=== PATIENT | male | born 1940 | race Caucasian/White ===

== ENCOUNTER 2021-01-09 20:09 | Inpatient (IN) ==
[2021-01-09] MEDS ORDERED: MORPHINE 4 MG/1 ML VIAL IV STA (20:52)
[2021-01-09 21:44] LABS: Basophils # 0.1 10*3/uL (0.0-0.2); Basophils % 0.3 % (0.0-0.8); Eosinophils % 0.2 % (0.00-10.9); Hematocrit 39.9 VOL% (42.0-52.0); Hemoglobin 12.5 GM/DL (14.0-18.0); Immature Granulocytes % 3.3 %; Immature Granulocytes Absolute 0.74 #; Lymphocytes # 1.1 10*3/uL (1.4-4.0); Lymphocytes % 4.8 % (21.2-54.2); Mean Corpuscular HGB Conc 31.3 GM/DL (32-36); Mean Platelet Volume 10.4 FL (9.6-12.0); Monocytes % 7.6 % (1.7-12.7); Neutrophils % 83.8 % (38.7-73.9); Platelet Count 147 T/CUMM (130-400); Red Blood Count 4.29 MC/CUMM (3.8-5.5); Red Cell Distribution Width 15.5 % (9.3-17.3); White Blood Count 22.4 T/CUMM (4-12)
[2021-01-09 21:59] LABS: Albumin 2.5 G/DL (3.4-5.0); Bilirubin,Total 0.6 MG/DL (0.2-1.0); Calcium 8.4 MG/DL (8.5-10.1); Osmolality,Calculated 296.7 MOS/KG (273-304); Potassium 4.8 MMOL/L (3.5-5.1); Total Protein 6.6 G/DL (6.4-8.2)
[2021-01-09 22:03] LABS: INR 1.3; PT Patient Result 13.6 SECS (9.8-11.9); Partial Thromboplastin Time 29.3 SECS (23.9-33.8)
[2021-01-09] MEDS ORDERED: cefTRIAXone 1,000 MG in SODIUM CHLORIDE 0.9% 100 ML IV STA (22:06)
[2021-01-09] MEDS ORDERED: SODIUM CHLORIDE 0.9% 1,000 ML IV STA (22:08)
[2021-01-09 22:33] LABS: Band Neutrophils 10 % (0-10); Lymphocytes 7 % (20-55); Segmented Neutrophils 79 % (50-85); Total Cells Counted 100
[2021-01-09 22:34] LABS: Platelet Estimate Normal
[2021-01-09 23:00] LABS: Amorphous Crystals,Urine Occasional /HPF (Few); Bilirubin,Urine Negative (Negative); Blood, Urine Moderate mg/dL (Negative); Glucose,Urine (UA) 150 mg/dL (Negative); Ketones,Urine Negative (Negative); Mucus,Urine Occasional /LPF (Occasional); Nitrite,Urine Negative (Negative); Protein,Urine >=500 MG/DL; RBC,Urine 57 /HPF (0-4); Red Blood Cell Casts,Urine 31 /LPF (<1); Squamous Epithelial Cell,Urine Occasional /HPF (0-10); Urine Appearance CLOUDY (Clear); Urine Color Amber (Yellow); Urine Urobilinogen < 2.0 EU/DL (0.2-1.0); WBC,Urine 1480 /HPF (0-6)
[2021-01-09] MEDS ORDERED: DEXTROSE 50% 25 GM/50 ML VIAL IV PRN (23:40)
[2021-01-09] MEDS ORDERED: ONDANSETRON 4 MG/2 ML VIAL IV PRN (23:40)
[2021-01-09] MEDS ORDERED: GLUCAGON 1 MG VIAL IM PRN (23:40)
[2021-01-10] MEDS: METOPROLOL SUCCINATE XL 100 MG TABLET PO SCH ×3 (00:57→20:42)
[2021-01-10] MEDS: SODIUM CHLORIDE 0.9% 1,000 ML IV SCH ×2 (01:17→13:53)
[2021-01-10 05:33] LABS: Basophils # 0.1 10*3/uL (0.0-0.2); Basophils % 0.4 % (0.0-0.8); Eosinophils # 0.1 10*3/uL (0.0-0.87); Eosinophils % 0.5 % (0.00-10.9); Hematocrit 36.8 VOL% (42.0-52.0); Hemoglobin 11.6 GM/DL (14.0-18.0); Immature Granulocytes % 3.7 %; Immature Granulocytes Absolute 0.75 #; Lymphocytes # 1.7 10*3/uL (1.4-4.0); Lymphocytes % 8.4 % (21.2-54.2); Mean Corpuscular HGB Conc 31.5 GM/DL (32-36); Mean Corpuscular Volume 92.7 FL (87-102); Mean Platelet Volume 10.6 FL (9.6-12.0); Monocytes % 7.7 % (1.7-12.7); Neutrophils % 79.3 % (38.7-73.9); Platelet Count 122 T/CUMM (130-400); Red Blood Count 3.97 MC/CUMM (3.8-5.5); Red Cell Distribution Width 15.5 % (9.3-17.3); White Blood Count 20.2 T/CUMM (4-12)
[2021-01-10 05:50] LABS: Calcium 8.3 MG/DL (8.5-10.1); Osmolality,Calculated 290.8 MOS/KG (273-304); Potassium 4.3 MMOL/L (3.5-5.1)
[2021-01-10 06:55] LABS: Band Neutrophils 6 % (0-10); Dohle Bodies 1+; Eosinophils 1 % (0-10); Lymphocytes 9 % (20-55); Metamyelocytes 1 %; Promyelocytes 1 %; Segmented Neutrophils 78 % (50-85); Total Cells Counted 100
[2021-01-10 06:56] LABS: Platelet Estimate Decreased
[2021-01-10] MEDS: INSULIN LISPRO 100 UNIT/ML SUBCUT SCH ×5 (08:21→20:44)
[2021-01-10] MEDS: MULTIVITAMIN (CENTRUM) TABLET PO SCH (08:49)
[2021-01-10] MEDS: CYANOCOBALAMIN 500 MCG TABLET PO SCH (08:49)
[2021-01-10] MEDS: CHOLECALCIFEROL 1,000 UNIT TABLET PO SCH (08:49)
[2021-01-10] MEDS: OMEGA 3 ACID ETHYL ESTERS 1 GM CAPSULE PO SCH (08:50)
[2021-01-10] MEDS: MAGNESIUM CHLORIDE 64 MG TABLET PO SCH ×2 (08:50→20:42)
[2021-01-10] MEDS: ACETAMINOPHEN 325 MG TABLET PO PRN (11:26)
[2021-01-10] MEDS ORDERED: ZIPRASIDONE 20 MG/1 ML VIAL IM PRN (20:08)
[2021-01-10] MEDS: ATORVASTATIN 40 MG TABLET PO SCH (20:42)
[2021-01-10] MEDS: cefTRIAXone 1,000 MG in SYRINGE 1 EACH IV SCH (22:42)
[2021-01-11] MEDS: HYDROmorphone 2 MG/1 ML VIAL IV PRN (01:42)
[2021-01-11] MEDS ORDERED: HALOPERIDOL 5 MG/ML AMP IV ONE (02:11)
[2021-01-11] MEDS: SODIUM CHLORIDE 0.9% 1,000 ML IV SCH ×2 (03:55→17:15)
[2021-01-11 06:11] LABS: Basophils # 0.1 10*3/uL (0.0-0.2); Basophils % 0.3 % (0.0-0.8); Eosinophils # 0.4 10*3/uL (0.0-0.87); Eosinophils % 2.1 % (0.00-10.9); Hematocrit 36.4 VOL% (42.0-52.0); Hemoglobin 11.4 GM/DL (14.0-18.0); Immature Granulocytes % 2.9 %; Lymphocytes % 5.8 % (21.2-54.2); Mean Corpuscular HGB Conc 31.3 GM/DL (32-36); Mean Corpuscular Volume 92.9 FL (87-102); Mean Platelet Volume 11.3 FL (9.6-12.0); Monocytes % 6.6 % (1.7-12.7); Neutrophils % 82.3 % (38.7-73.9); Platelet Count 151 T/CUMM (130-400); Red Blood Count 3.92 MC/CUMM (3.8-5.5); Red Cell Distribution Width 15.5 % (9.3-17.3); White Blood Count 17.3 T/CUMM (4-12)
[2021-01-11] MEDS: THYROID 60 MG TABLET PO SCH (06:28)
[2021-01-11 06:38] LABS: Eosinophils 1 % (0-10); Lymphocytes 8 % (20-55); Platelet Estimate Adequate; Segmented Neutrophils 85 % (50-85); Total Cells Counted 100
[2021-01-11 06:40] LABS: Calcium 8.6 MG/DL (8.5-10.1); Osmolality,Calculated 298.3 MOS/KG (273-304); Potassium 4.6 MMOL/L (3.5-5.1)
[2021-01-11] MEDS: INSULIN LISPRO 100 UNIT/ML SUBCUT SCH ×4 (07:36→20:02)
[2021-01-11] MEDS ORDERED: fentaNYL 100 MCG/2 ML VIAL ONE (07:51)
[2021-01-11] MEDS: CHOLECALCIFEROL 1,000 UNIT TABLET PO SCH (09:00)
[2021-01-11] MEDS: METOPROLOL SUCCINATE XL 100 MG TABLET PO SCH ×2 (09:00→20:02)
[2021-01-11] MEDS: CYANOCOBALAMIN 500 MCG TABLET PO SCH (09:00)
[2021-01-11] MEDS: MAGNESIUM CHLORIDE 64 MG TABLET PO SCH ×2 (09:00→20:02)
[2021-01-11] MEDS: OMEGA 3 ACID ETHYL ESTERS 1 GM CAPSULE PO SCH (09:00)
[2021-01-11] MEDS ORDERED: ROCURONIUM 50 MG/5 ML VIAL IV ONE (09:12)
[2021-01-11] MEDS ORDERED: LIDOCAINE 2% 5 ML VIAL ONE (09:12)
[2021-01-11] MEDS ORDERED: propofoL 200 MG/20 ML VIAL IV ONE (09:12)
[2021-01-11] MEDS ORDERED: SEVOFLURANE 1 UNIT/15 MINUTE INH ONE (09:12)
[2021-01-11] MEDS ORDERED: PHENYLEPHRINE 1 MG/10 ML SYRINGE IV ONE (09:12)
[2021-01-11] MEDS: MULTIVITAMIN (CENTRUM) TABLET PO SCH (09:12)
[2021-01-11 09:31] LABS: ABG Base Excess -5.7 MMOL/L (-2.5-2.5); ABG HCO3 21.6 MMOL/L (20-26); ABG Oxygen Saturation 94.2 % (95-100); ABG PCO2 49.9 MM HG (35-48); ABG PH 7.254 (7.35-7.45); ABG PO2 80.7 MM HG (80-95); ABG TCO2 23.1 MMOL/L (23-27); Pt O2 Delivery Device Ventilator
[2021-01-11] MEDS: hydrALAZINE 20 MG/1 ML VIAL IV PRN (18:20)
[2021-01-11] MEDS: ATORVASTATIN 40 MG TABLET PO SCH (20:02)
[2021-01-11] MEDS: PANTOPRAZOLE 40 MG VIAL IV SCH (20:20)
[2021-01-11] MEDS: cefTRIAXone 1,000 MG in SYRINGE 1 EACH IV SCH (22:55)
[2021-01-12] MEDS: hydrALAZINE 20 MG/1 ML VIAL IV PRN ×2 (03:08→09:50)
[2021-01-12 04:00] LABS: ABG Base Excess -2.5 MMOL/L (-2.5-2.5); ABG HCO3 22.3 MMOL/L (20-26); ABG Oxygen Saturation 96.6 % (95-100); ABG PCO2 35.6 MM HG (35-48); ABG PH 7.396 (7.35-7.45); ABG PO2 82.2 MM HG (80-95); ABG TCO2 19.4 MMOL/L (23-27); Allen Test Positive; Pt O2 Delivery Device Ventilator
[2021-01-12] MEDS: SODIUM CHLORIDE 0.9% 1,000 ML IV SCH ×4 (04:24→20:08)
[2021-01-12 05:50] LABS: Basophils # 0.1 10*3/uL (0.0-0.2); Basophils % 0.4 % (0.0-0.8); Eosinophils # 0.6 10*3/uL (0.0-0.87); Hematocrit 35.9 VOL% (42.0-52.0); Hemoglobin 11.2 GM/DL (14.0-18.0); Immature Granulocytes % 0.9 %; Immature Granulocytes Absolute 0.11 #; Lymphocytes # 1.2 10*3/uL (1.4-4.0); Lymphocytes % 9.9 % (21.2-54.2); Mean Corpuscular HGB Conc 31.2 GM/DL (32-36); Mean Corpuscular Volume 92.5 FL (87-102); Mean Platelet Volume 10.7 FL (9.6-12.0); Neutrophils % 75.8 % (38.7-73.9); Platelet Count 164 T/CUMM (130-400); Red Blood Count 3.88 MC/CUMM (3.8-5.5); Red Cell Distribution Width 15.9 % (9.3-17.3); White Blood Count 12.3 T/CUMM (4-12)
[2021-01-12 06:12] LABS: Albumin 1.9 G/DL (3.4-5.0); Bilirubin,Total 0.4 MG/DL (0.2-1.0); Calcium 8.5 MG/DL (8.5-10.1); Potassium 4.2 MMOL/L (3.5-5.1); Total Protein 6.3 G/DL (6.4-8.2)
[2021-01-12] MEDS: THYROID 60 MG TABLET PO SCH (06:41)
[2021-01-12 06:53] LABS: Anisocytosis 1+; Band Neutrophils 1 % (0-10); Eosinophils 3 % (0-10); Lymphocytes 8 % (20-55); Macrocytosis 1+; Platelet Estimate Normal; Segmented Neutrophils 82 % (50-85); Total Cells Counted 100
[2021-01-12] MEDS: INSULIN LISPRO 100 UNIT/ML SUBCUT SCH ×4 (08:19→20:17)
[2021-01-12] MEDS ORDERED: DEXTROSE 50% 25 GM/50 ML VIAL IV PRN (08:38)
[2021-01-12] MEDS ORDERED: GLUCAGON 1 MG VIAL IM PRN (08:38)
[2021-01-12] MEDS: OMEGA 3 ACID ETHYL ESTERS 1 GM CAPSULE PO SCH (10:21)
[2021-01-12] MEDS: MAGNESIUM CHLORIDE 64 MG TABLET PO SCH ×2 (10:21→23:40)
[2021-01-12] MEDS: ASPIRIN 325 MG TABLET PO SCH (10:25)
[2021-01-12] MEDS: CHOLECALCIFEROL 1,000 UNIT TABLET PO SCH (10:25)
[2021-01-12] MEDS: ENOXAPARIN 40 MG/0.4 ML SYRINGE SUBCUT SCH (10:26)
[2021-01-12] MEDS: amLODIPine 10 MG TABLET PER TUBE SCH (10:26)
[2021-01-12] MEDS: METOPROLOL TARTRATE 100 MG TABLET PER TUBE SCH ×2 (10:26→23:38)
[2021-01-12] MEDS: MULTIVITAMIN (CENTRUM) TABLET PO SCH (10:26)
[2021-01-12] MEDS: CYANOCOBALAMIN 500 MCG TABLET PO SCH (10:26)
[2021-01-12] MEDS: GENTAMICIN INJ 240 MG in SODIUM CHLORIDE 0.9% 100 ML IV SCH ×2 (10:49→23:45)
[2021-01-12] MEDS: ALBUTEROL/IPRATROPIUM 3 ML NEB RESP TX SCH ×2 (13:18→19:34)
[2021-01-12] MEDS ORDERED: PHENYLEPHRINE 1 MG/10 ML SYRINGE IV ONE (20:17)
[2021-01-12] MEDS ORDERED: MIDAZOLAM 2 MG/2 ML VIAL ONE ×3 (20:18→21:22)
[2021-01-12] MEDS ORDERED: VECURONIUM 10 MG VIAL IV ONE (20:18)
[2021-01-12] MEDS ORDERED: fentaNYL 250 MCG/5 ML VIAL ONE (20:18)
[2021-01-12] MEDS ORDERED: CLINDAMYCIN INJ 50 ML IV ONE (20:54)
[2021-01-12] MEDS ORDERED: ACETAMINOPHEN 1,000 MG/100 ML VIAL IV ONE (21:22)
[2021-01-12] MEDS: ATORVASTATIN 40 MG TABLET PO SCH (23:38)
[2021-01-12] MEDS: PANTOPRAZOLE 40 MG VIAL IV SCH (23:38)
[2021-01-12] MEDS: allopurinoL 100 MG TABLET PO SCH (23:40)
[2021-01-12] MEDS: CLINDAMYCIN INJ 900 MG in PREMIX 1 EACH IV SCH (23:41)
[2021-01-13] MEDS: ALBUTEROL/IPRATROPIUM 3 ML NEB RESP TX SCH ×4 (01:11→19:13)
[2021-01-13 04:27] LABS: Allen Test Positive; Pt O2 Delivery Device Ventilator
[2021-01-13 04:30] LABS: ABG Base Excess -3.4 MMOL/L (-2.5-2.5); ABG HCO3 21.6 MMOL/L (20-26); ABG Oxygen Saturation 96.7 % (95-100); ABG PH 7.378 (7.35-7.45); ABG PO2 86.8 MM HG (80-95); ABG TCO2 19.1 MMOL/L (23-27)
[2021-01-13 05:15] LABS: Basophils # 0.1 10*3/uL (0.0-0.2); Basophils % 0.5 % (0.0-0.8); Eosinophils # 0.6 10*3/uL (0.0-0.87); Eosinophils % 5.3 % (0.00-10.9); Hematocrit 34.1 VOL% (42.0-52.0); Hemoglobin 10.7 GM/DL (14.0-18.0); Immature Granulocytes % 1.1 %; Immature Granulocytes Absolute 0.11 #; Lymphocytes # 1.2 10*3/uL (1.4-4.0); Lymphocytes % 11.3 % (21.2-54.2); Mean Corpuscular HGB Conc 31.4 GM/DL (32-36); Mean Corpuscular Volume 93.4 FL (87-102); Mean Platelet Volume 11.6 FL (9.6-12.0); Monocytes % 10.4 % (1.7-12.7); Neutrophils % 71.4 % (38.7-73.9); Platelet Count 163 T/CUMM (130-400); Red Blood Count 3.65 MC/CUMM (3.8-5.5); Red Cell Distribution Width 15.8 % (9.3-17.3); White Blood Count 10.4 T/CUMM (4-12)
[2021-01-13] MEDS: CLINDAMYCIN INJ 900 MG in PREMIX 1 EACH IV SCH ×3 (05:51→22:14)
[2021-01-13] MEDS: THYROID 60 MG TABLET PO SCH (06:01)
[2021-01-13 06:18] LABS: Albumin 1.8 G/DL (3.4-5.0); Bilirubin,Total 0.6 MG/DL (0.2-1.0); Calcium 8.4 MG/DL (8.5-10.1); Osmolality,Calculated 296.1 MOS/KG (273-304); Potassium 4.5 MMOL/L (3.5-5.1); Total Protein 6.3 G/DL (6.4-8.2)
[2021-01-13] MEDS ORDERED: INSULIN GLARGINE 100 UNIT/ML SUBCUT SCH (09:00)
[2021-01-13] MEDS: methylPREDNISolone SOD SUC 40 MG/1 ML VIAL IV SCH ×2 (09:22→15:17)
[2021-01-13] MEDS: INSULIN LISPRO 100 UNIT/ML SUBCUT SCH ×4 (09:22→21:25)
[2021-01-13] MEDS: ASPIRIN 325 MG TABLET PO SCH (09:23)
[2021-01-13] MEDS: SODIUM CHLORIDE 0.9% 1,000 ML IV SCH ×2 (09:23→23:56)
[2021-01-13] MEDS: MULTIVITAMIN (CENTRUM) TABLET PO SCH (09:23)
[2021-01-13] MEDS: METOPROLOL TARTRATE 100 MG TABLET PER TUBE SCH ×2 (09:23→20:27)
[2021-01-13] MEDS: CHOLECALCIFEROL 1,000 UNIT TABLET PO SCH (09:24)
[2021-01-13] MEDS: amLODIPine 10 MG TABLET PER TUBE SCH (09:24)
[2021-01-13] MEDS: MAGNESIUM CHLORIDE 64 MG TABLET PO SCH ×2 (09:24→20:27)
[2021-01-13] MEDS: GENTAMICIN INJ 240 MG in SODIUM CHLORIDE 0.9% 100 ML IV SCH ×2 (09:24→21:26)
[2021-01-13] MEDS: OMEGA 3 ACID ETHYL ESTERS 1 GM CAPSULE PO SCH (09:24)
[2021-01-13] MEDS: CYANOCOBALAMIN 500 MCG TABLET PO SCH (09:24)
[2021-01-13] MEDS: ENOXAPARIN 40 MG/0.4 ML SYRINGE SUBCUT SCH (09:25)
[2021-01-13] MEDS: PANTOPRAZOLE 40 MG VIAL IV SCH (20:27)
[2021-01-13] MEDS: allopurinoL 100 MG TABLET PO SCH (20:27)
[2021-01-13] MEDS: ATORVASTATIN 40 MG TABLET PO SCH (20:27)
[2021-01-14] MEDS: ALBUTEROL/IPRATROPIUM 3 ML NEB RESP TX SCH ×4 (00:07→19:46)
[2021-01-14] MEDS: methylPREDNISolone SOD SUC 40 MG/1 ML VIAL IV SCH ×4 (00:17→23:37)
[2021-01-14 04:04] LABS: ABG HCO3 19.9 MMOL/L (20-26); ABG Oxygen Saturation 96.8 % (95-100); ABG PCO2 36.4 MM HG (35-48); ABG PH 7.356 (7.35-7.45); ABG PO2 97.9 MM HG (80-95)
[2021-01-14 04:40] LABS: Basophils % 0.3 % (0.0-0.8); Hematocrit 35.7 VOL% (42.0-52.0); Immature Granulocytes % 3.7 %; Immature Granulocytes Absolute 0.29 #; Lymphocytes # 0.5 10*3/uL (1.4-4.0); Mean Corpuscular HGB Conc 30.8 GM/DL (32-36); Mean Corpuscular Volume 93.7 FL (87-102); Mean Platelet Volume 10.7 FL (9.6-12.0); Monocytes % 3.1 % (1.7-12.7); Neutrophils % 86.9 % (38.7-73.9); Platelet Count 171 T/CUMM (130-400); Red Blood Count 3.81 MC/CUMM (3.8-5.5); Red Cell Distribution Width 15.4 % (9.3-17.3); White Blood Count 7.8 T/CUMM (4-12)
[2021-01-14 05:22] LABS: Albumin 1.8 G/DL (3.4-5.0); Bilirubin,Total 0.7 MG/DL (0.2-1.0); Calcium 8.6 MG/DL (8.5-10.1); Osmolality,Calculated 298.5 MOS/KG (273-304); Potassium 5.3 MMOL/L (3.5-5.1); Total Protein 6.5 G/DL (6.4-8.2)
[2021-01-14] MEDS: CLINDAMYCIN INJ 900 MG in PREMIX 1 EACH IV SCH ×3 (06:17→21:19)
[2021-01-14] MEDS: THYROID 60 MG TABLET PO SCH (06:18)
[2021-01-14 07:22] LABS: Band Neutrophils 7 % (0-10); Lymphocytes 4 % (20-55); Myelocytes 1 %; Nucleated Red Blood Cells 1 (0-5); Segmented Neutrophils 84 % (50-85); Total Cells Counted 100
[2021-01-14 07:24] LABS: Hypochromasia 1+; Microcytosis 1+
[2021-01-14 07:25] LABS: Platelet Estimate Adequate
[2021-01-14] MEDS: INSULIN LISPRO 100 UNIT/ML SUBCUT SCH ×4 (08:59→20:15)
[2021-01-14] MEDS: ASPIRIN 325 MG TABLET PO SCH (09:01)
[2021-01-14] MEDS: MAGNESIUM CHLORIDE 64 MG TABLET PO SCH ×2 (09:02→20:17)
[2021-01-14] MEDS: INSULIN GLARGINE 100 UNIT/ML SUBCUT SCH (09:02)
[2021-01-14] MEDS: amLODIPine 10 MG TABLET PER TUBE SCH (09:02)
[2021-01-14] MEDS: CHOLECALCIFEROL 1,000 UNIT TABLET PO SCH (09:02)
[2021-01-14] MEDS: METOPROLOL TARTRATE 100 MG TABLET PER TUBE SCH ×2 (09:02→20:16)
[2021-01-14] MEDS: ENOXAPARIN 40 MG/0.4 ML SYRINGE SUBCUT SCH (09:02)
[2021-01-14] MEDS: MULTIVITAMIN (CENTRUM) TABLET PO SCH (09:02)
[2021-01-14] MEDS: OMEGA 3 ACID ETHYL ESTERS 1 GM CAPSULE PO SCH (09:02)
[2021-01-14] MEDS: CYANOCOBALAMIN 500 MCG TABLET PO SCH (09:02)
[2021-01-14] MEDS ORDERED: SODIUM CHLORIDE 0.9% 100 ML IV ONE (09:21)
[2021-01-14] MEDS: SODIUM CHLORIDE 0.9% 1,000 ML IV SCH (11:44)
[2021-01-14] MEDS: PANTOPRAZOLE 40 MG VIAL IV SCH (20:16)
[2021-01-14] MEDS: ATORVASTATIN 40 MG TABLET PO SCH (20:16)
[2021-01-14] MEDS: allopurinoL 100 MG TABLET PO SCH (20:17)
[2021-01-15] MEDS: ALBUTEROL/IPRATROPIUM 3 ML NEB RESP TX SCH ×4 (00:03→19:03)
[2021-01-15] MEDS: SODIUM CHLORIDE 0.9% 1,000 ML IV SCH ×3 (01:04→14:25)
[2021-01-15] MEDS: GENTAMICIN INJ 100 MG in PREMIX 1 EACH IV SCH (03:30)
[2021-01-15] MEDS: CLINDAMYCIN INJ 900 MG in PREMIX 1 EACH IV SCH ×3 (05:07→21:15)
[2021-01-15 05:26] LABS: ABG Base Excess -4.5 MMOL/L (-2.5-2.5); ABG HCO3 20.7 MMOL/L (20-26); ABG Oxygen Saturation 96.5 % (95-100); ABG PCO2 38.3 MM HG (35-48); ABG PH 7.343 (7.35-7.45); ABG PO2 88.2 MM HG (80-95); ABG TCO2 18.8 MMOL/L (23-27); Allen Test Positive; Pt O2 Delivery Device Ventilator
[2021-01-15] MEDS: THYROID 60 MG TABLET PO SCH (06:02)
[2021-01-15] MEDS: INSULIN LISPRO 100 UNIT/ML SUBCUT SCH ×4 (07:33→21:21)
[2021-01-15] MEDS: INSULIN GLARGINE 100 UNIT/ML SUBCUT SCH (07:33)
[2021-01-15] MEDS: methylPREDNISolone SOD SUC 40 MG/1 ML VIAL IV SCH ×3 (07:42→23:25)
[2021-01-15] MEDS: ENOXAPARIN 40 MG/0.4 ML SYRINGE SUBCUT SCH (08:20)
[2021-01-15] MEDS: METOPROLOL TARTRATE 100 MG TABLET PER TUBE SCH ×2 (08:20→21:19)
[2021-01-15] MEDS: MULTIVITAMIN (CENTRUM) TABLET PO SCH (08:20)
[2021-01-15] MEDS: MAGNESIUM CHLORIDE 64 MG TABLET PO SCH ×2 (08:20→21:13)
[2021-01-15] MEDS: OMEGA 3 ACID ETHYL ESTERS 1 GM CAPSULE PO SCH (08:20)
[2021-01-15] MEDS: CYANOCOBALAMIN 500 MCG TABLET PO SCH (08:20)
[2021-01-15] MEDS: amLODIPine 10 MG TABLET PER TUBE SCH (08:20)
[2021-01-15] MEDS: ASPIRIN 325 MG TABLET PO SCH (08:20)
[2021-01-15] MEDS: cloNIDine 0.1 MG TABLET PO PRN ×2 (10:38→14:40)
[2021-01-15] MEDS: hydrALAZINE 20 MG/1 ML VIAL IV PRN (10:38)
[2021-01-15] MEDS: CHOLECALCIFEROL 1,000 UNIT TABLET PO SCH (10:42)
[2021-01-15] MEDS: ATORVASTATIN 40 MG TABLET PO SCH (21:13)
[2021-01-15] MEDS: allopurinoL 100 MG TABLET PO SCH (21:13)
[2021-01-15] MEDS: PANTOPRAZOLE 40 MG VIAL IV SCH (21:14)
[2021-01-15] MEDS: HYDROmorphone 2 MG/1 ML VIAL IV PRN (21:48)
[2021-01-16] MEDS: INSULIN LISPRO 100 UNIT/ML SUBCUT SCH ×6 (00:04→21:22)
[2021-01-16] MEDS: ALBUTEROL/IPRATROPIUM 3 ML NEB RESP TX SCH ×4 (00:30→18:08)
[2021-01-16] MEDS: DOCUSATE SODIUM 100 MG CAPSULE PO PRN ×2 (03:39→21:55)
[2021-01-16 04:17] LABS: Basophils % 0.1 % (0.0-0.8); Hematocrit 37.1 VOL% (42.0-52.0); Hemoglobin 11.4 GM/DL (14.0-18.0); Immature Granulocytes % 4.4 %; Immature Granulocytes Absolute 0.35 #; Lymphocytes # 0.7 10*3/uL (1.4-4.0); Lymphocytes % 8.2 % (21.2-54.2); Mean Corpuscular HGB Conc 30.7 GM/DL (32-36); Mean Corpuscular Volume 93.2 FL (87-102); Mean Platelet Volume 10.9 FL (9.6-12.0); Monocytes % 10.5 % (1.7-12.7); Neutrophils % 76.8 % (38.7-73.9); Platelet Count 241 T/CUMM (130-400); Red Blood Count 3.98 MC/CUMM (3.8-5.5); Red Cell Distribution Width 15.3 % (9.3-17.3); White Blood Count 7.9 T/CUMM (4-12)
[2021-01-16 04:40] LABS: Calcium 8.7 MG/DL (8.5-10.1); Osmolality,Calculated 306.4 MOS/KG (273-304)
[2021-01-16 04:44] LABS: Potassium 6.3 MMOL/L (3.5-5.1)
[2021-01-16] MEDS ORDERED: SODIUM POLYSTYRENE SULFATE 15 GM/60 ML BOTTLE PO STA (05:04)
[2021-01-16] MEDS: CLINDAMYCIN INJ 900 MG in PREMIX 1 EACH IV SCH ×3 (05:29→22:06)
[2021-01-16] MEDS: THYROID 60 MG TABLET PO SCH (06:48)
[2021-01-16] MEDS: INSULIN GLARGINE 100 UNIT/ML SUBCUT SCH (07:30)
[2021-01-16] MEDS: methylPREDNISolone SOD SUC 40 MG/1 ML VIAL IV SCH ×2 (07:35→16:55)
[2021-01-16] MEDS: hydrALAZINE 20 MG/1 ML VIAL IV PRN (07:35)
[2021-01-16] MEDS: ENOXAPARIN 40 MG/0.4 ML SYRINGE SUBCUT SCH (08:35)
[2021-01-16] MEDS: MAGNESIUM CHLORIDE 64 MG TABLET PO SCH ×2 (08:40→22:06)
[2021-01-16] MEDS: METOPROLOL TARTRATE 100 MG TABLET PER TUBE SCH ×2 (08:40→21:55)
[2021-01-16] MEDS: CYANOCOBALAMIN 500 MCG TABLET PO SCH (08:40)
[2021-01-16] MEDS: MULTIVITAMIN (CENTRUM) TABLET PO SCH (08:40)
[2021-01-16] MEDS: CHOLECALCIFEROL 1,000 UNIT TABLET PO SCH (08:40)
[2021-01-16] MEDS: amLODIPine 10 MG TABLET PER TUBE SCH (08:40)
[2021-01-16] MEDS: OMEGA 3 ACID ETHYL ESTERS 1 GM CAPSULE PO SCH (08:40)
[2021-01-16] MEDS: ASPIRIN 325 MG TABLET PO SCH (08:40)
[2021-01-16] MEDS: cloNIDine 0.1 MG TABLET PO PRN ×2 (10:25→18:20)
[2021-01-16] MEDS: HYDROmorphone 2 MG/1 ML VIAL IV PRN ×2 (10:25→20:32)
[2021-01-16] MEDS: GENTAMICIN INJ 100 MG in PREMIX 1 EACH IV SCH (14:30)
[2021-01-16] MEDS: SODIUM CHLORIDE 0.9% 1,000 ML IV SCH (14:30)
[2021-01-16] MEDS ORDERED: INSULIN GLARGINE 100 UNIT/ML SUBCUT ONE (16:51)
[2021-01-16 19:07] VITALS: BP 182/76
[2021-01-16] MEDS: PANTOPRAZOLE 40 MG VIAL IV SCH (21:54)
[2021-01-16] MEDS: ATORVASTATIN 40 MG TABLET PO SCH (21:55)
[2021-01-16] MEDS: allopurinoL 100 MG TABLET PO SCH (22:05)
[2021-01-17] MEDS: INSULIN LISPRO 100 UNIT/ML SUBCUT SCH ×6 (00:25→21:14)
[2021-01-17] MEDS: methylPREDNISolone SOD SUC 40 MG/1 ML VIAL IV SCH ×3 (00:26→17:16)
[2021-01-17] MEDS: ALBUTEROL/IPRATROPIUM 3 ML NEB RESP TX SCH ×4 (00:55→18:09)
[2021-01-17] MEDS: HYDROmorphone 2 MG/1 ML VIAL IV PRN (04:35)
[2021-01-17 04:48] LABS: Basophils % 0.1 % (0.0-0.8); Hematocrit 38.3 VOL% (42.0-52.0); Hemoglobin 11.8 GM/DL (14.0-18.0); Immature Granulocytes % 2.5 %; Immature Granulocytes Absolute 0.25 #; Lymphocytes # 0.5 10*3/uL (1.4-4.0); Lymphocytes % 5.1 % (21.2-54.2); Mean Corpuscular HGB Conc 30.8 GM/DL (32-36); Mean Corpuscular Volume 93.4 FL (87-102); Mean Platelet Volume 11.2 FL (9.6-12.0); Monocytes % 5.4 % (1.7-12.7); NRBC # 0.02 10*3/uL; Neutrophils % 86.9 % (38.7-73.9); Platelet Count 249 T/CUMM (130-400); Red Cell Distribution Width 15.4 % (9.3-17.3)
[2021-01-17] MEDS: CLINDAMYCIN INJ 900 MG in PREMIX 1 EACH IV SCH ×3 (05:00→21:40)
[2021-01-17 05:03] LABS: Calcium 8.7 MG/DL (8.5-10.1); Osmolality,Calculated 306.4 MOS/KG (273-304)
[2021-01-17 05:06] LABS: Potassium 6.5 MMOL/L (3.5-5.1)
[2021-01-17] MEDS: SODIUM POLYSTYRENE SULFATE 15 GM/60 ML BOTTLE PO SCH ×2 (05:35→12:14)
[2021-01-17] MEDS: THYROID 60 MG TABLET PO SCH (06:09)
[2021-01-17] MEDS: METOPROLOL TARTRATE 100 MG TABLET PER TUBE SCH ×2 (09:21→21:35)
[2021-01-17] MEDS: CHOLECALCIFEROL 1,000 UNIT TABLET PO SCH (09:21)
[2021-01-17] MEDS: CYANOCOBALAMIN 500 MCG TABLET PO SCH (09:21)
[2021-01-17] MEDS: ASPIRIN 325 MG TABLET PO SCH (09:21)
[2021-01-17] MEDS: OMEGA 3 ACID ETHYL ESTERS 1 GM CAPSULE PO SCH (09:21)
[2021-01-17] MEDS: MULTIVITAMIN (CENTRUM) TABLET PO SCH (09:21)
[2021-01-17] MEDS: amLODIPine 10 MG TABLET PER TUBE SCH (09:21)
[2021-01-17] MEDS: MAGNESIUM CHLORIDE 64 MG TABLET PO SCH ×2 (09:22→21:35)
[2021-01-17] MEDS: ENOXAPARIN 40 MG/0.4 ML SYRINGE SUBCUT SCH (09:24)
[2021-01-17] MEDS: INSULIN GLARGINE 100 UNIT/ML SUBCUT SCH (10:03)
[2021-01-17] MEDS ORDERED: SODIUM POLYSTYRENE SULFATE 15 GM/60 ML BOTTLE PO ONE (12:11)
[2021-01-17] MEDS: hydrALAZINE 25 MG TABLET PO SCH ×2 (15:00→21:35)
[2021-01-17] MEDS: ISOSORBIDE MONONITRATE 30 MG TABLET PO SCH (15:00)
[2021-01-17 18:32] LABS: Calcium 8.9 MG/DL (8.5-10.1); Osmolality,Calculated 304.3 MOS/KG (273-304)
[2021-01-17] MEDS: allopurinoL 100 MG TABLET PO SCH (21:35)
[2021-01-17] MEDS: ACETAMINOPHEN 325 MG TABLET PO PRN (21:35)
[2021-01-17] MEDS: ATORVASTATIN 40 MG TABLET PO SCH (21:35)
[2021-01-17] MEDS: PANTOPRAZOLE 40 MG VIAL IV SCH (21:39)
[2021-01-18] MEDS: methylPREDNISolone SOD SUC 40 MG/1 ML VIAL IV SCH ×3 (00:06→15:11)
[2021-01-18] MEDS: INSULIN LISPRO 100 UNIT/ML SUBCUT SCH ×4 (00:21→12:15)
[2021-01-18] MEDS: ALBUTEROL/IPRATROPIUM 3 ML NEB RESP TX SCH ×4 (02:33→13:10)
[2021-01-18 05:13] LABS: Basophils % 0.2 % (0.0-0.8); Hemoglobin 12.2 GM/DL (14.0-18.0); Immature Granulocytes % 1.8 %; Immature Granulocytes Absolute 0.19 #; Lymphocytes # 0.5 10*3/uL (1.4-4.0); Lymphocytes % 5.1 % (21.2-54.2); Mean Corpuscular HGB Conc 32.1 GM/DL (32-36); Mean Corpuscular Volume 89.6 FL (87-102); Mean Platelet Volume 11.4 FL (9.6-12.0); Neutrophils % 88.9 % (38.7-73.9); Platelet Count 259 T/CUMM (130-400); Red Blood Count 4.24 MC/CUMM (3.8-5.5); Red Cell Distribution Width 15.2 % (9.3-17.3); White Blood Count 10.6 T/CUMM (4-12)
[2021-01-18 05:28] LABS: Calcium 8.7 MG/DL (8.5-10.1); Osmolality,Calculated 306.4 MOS/KG (273-304); Potassium 5.3 MMOL/L (3.5-5.1)
[2021-01-18] MEDS: CLINDAMYCIN INJ 900 MG in PREMIX 1 EACH IV SCH (05:35)
[2021-01-18] MEDS: THYROID 60 MG TABLET PO SCH (06:31)
[2021-01-18] MEDS: MAGNESIUM CHLORIDE 64 MG TABLET PO SCH (08:15)
[2021-01-18] MEDS: ASPIRIN 325 MG TABLET PO SCH (08:15)
[2021-01-18] MEDS: amLODIPine 10 MG TABLET PER TUBE SCH (08:16)
[2021-01-18] MEDS: MULTIVITAMIN (CENTRUM) TABLET PO SCH (08:16)
[2021-01-18] MEDS: hydrALAZINE 25 MG TABLET PO SCH (08:16)
[2021-01-18] MEDS: CHOLECALCIFEROL 1,000 UNIT TABLET PO SCH (08:16)
[2021-01-18] MEDS: ISOSORBIDE MONONITRATE 30 MG TABLET PO SCH (08:16)
[2021-01-18] MEDS: CYANOCOBALAMIN 500 MCG TABLET PO SCH (08:16)
[2021-01-18] MEDS: METOPROLOL TARTRATE 100 MG TABLET PER TUBE SCH (08:17)
[2021-01-18] MEDS: OMEGA 3 ACID ETHYL ESTERS 1 GM CAPSULE PO SCH (08:17)
[2021-01-18] MEDS: INSULIN GLARGINE 100 UNIT/ML SUBCUT SCH (08:30)
[2021-01-18] MEDS: ENOXAPARIN 40 MG/0.4 ML SYRINGE SUBCUT SCH (09:20)
[2021-01-18] MEDS ORDERED: hydrALAZINE 25 MG TABLET PO ONE (09:58)
[2021-01-18] MEDS ORDERED: INSULIN GLARGINE 100 UNIT/ML SUBCUT ONE (10:00)
[2021-01-18] MEDS ORDERED: hydrALAZINE 25 MG TABLET ONE (10:05)
[2021-01-18] MEDS: cloNIDine 0.1 MG TABLET PO PRN (12:16)
[2021-01-18] MEDS ORDERED: PANTOPRAZOLE 40 MG TABLET PO SCH (21:00)
[2021-01-19] MEDS ORDERED: INSULIN GLARGINE 100 UNIT/ML SUBCUT SCH (09:00)
== END 2021-01-18 16:08 | DRG 492 ==
LOC: EDBD → EDUNIT# → N.ED 20:09 → SUATTDRO 22:46 → N.EDINP 22:46 → N.3E 01-10 00:25 → N.ICU 01-11 08:38
PROVIDERS: ADMIT Internal Medicine; ATTEND Internal Medicine